=== PATIENT | male | born 1985 | race Caucasian/White ===

== ENCOUNTER 2023-01-14 13:26 | Outpatient (OUT) | payer BC, SELFPAY ==
--- NOTE | 2023-01-14 13:38 | XR_ITS ---
The [address] [address] Patient Name: JENNI ZAMUDIO MRN: [id number] date: 1985 Sex: M Assigned Patient Location: RAD Current Patient Location: Accession/Order Number: [id number] Exam Date: 01/14/2023 13:45 Report Date: 01/15/2023 07:18 At the request of: SHAIKH MAHAMED Procedure: XR toe RT min 2V PROCEDURE: XR toe RT min 2V COMPARISON: None. HISTORY: Right great toe pain M79.674 FINDINGS: BONES:Complex nonangulated fracture tuft of the first distal phalanx with distraction up to 1 mm. No dislocation. SOFT TISSUES:Soft tissue swelling first toe EFFUSION:None visible. OTHER: Negative. XR/XR toe RT min 2V IMPRESSION: Complex fracture tuft of the first distal phalanx Electronically authenticated by: IVONE ROWELL Date: 01/15/2023 07:18
== END 2023-01-14 13:27 | disposition home or self-care (01) ==
PROVIDERS: PCP Family Medicine; Visit Provider Internal Medicine
DX: S92.421A Displaced fracture of distal phalanx of right great toe, initial encounter for closed fracture (principal); M79.674 Pain in right toe(s)
CPT/HCPCS: 73660

== ENCOUNTER 2023-04-02 13:21 | Outpatient (OUT) | payer BC, SELFPAY ==
--- NOTE | 2023-04-02 13:31 | MR_ITS ---
The [address] [address] Patient Name: JENNI ZAMUDIO MRN: [id number] date: 1985 Sex: M Assigned Patient Location: [facility] Current Patient Location: [facility] Accession/Order Number: [id number] Exam Date: 04/02/2023 13:46 Report Date: 04/02/2023 15:07 At the request of: NON-STAFF PHYSICIAN Procedure: MR hip RT wo con MR hip RT wo con, 04/02/2023 1:46 PM EDT INDICATION: Loose Body In Right Hip Joint M24.051 COMPARISON: There is no appropriate prior study for comparison. TECHNIQUE: Multiplanar, multisequential MRI images were obtained without contrast. FINDINGS: This study is limited due to poor quality of images likely due to technical factors and patient's body habitus. Bone: There is no bone marrow signal abnormality. No osseus lesion or AVM is noted. The femoral acetabular joints are unremarkable. No definite loose body within the right femoral acetabular joint is noted. Labrum: There is focal T2 prolongation within the superolateral of right labrum suggesting of degenerative changes. Muscles: The visualized portions of muscles and tendons are unremarkable, given the limitation of study. No bursitis is noted. The visualized portions of visceral organs are unremarkable. MR/MR hip RT wo con IMPRESSION: Limited study. Findings suggestive of mild degenerative changes within the superolateral aspect of the right labrum. No definite loose body within the right femoral acetabular joint. Electronically authenticated by: SANDRA CHENG Date: 04/02/2023 15:07
--- NOTE | 2023-04-02 13:44 | XR_ITS ---
The [address] [address] Patient Name: JENNI ZAMUDIO MRN: [id number] date: 1985 Sex: M Assigned Patient Location: RAD Current Patient Location: [facility] Accession/Order Number: [id number] Exam Date: 04/02/2023 13:38 Report Date: 04/02/2023 13:55 At the request of: NON-STAFF PHYSICIAN Procedure: XR foreign body eye XR foreign body eye, 04/02/2023 1:38 PM EDT, OH001 INDICATION: Foreign Body Eye Evaluate for the presence of metallic/radiopaque foreign body, for MRI clearance COMPARISON: None Technique: AP and lateral views of the orbits obtained. FINDINGS: There is no evidence of radiopaque foreign body in the orbits. XR/XR foreign body eye IMPRESSION: No evidence of radiopaque foreign body. Electronically authenticated by: BLAYNE LILLY Date: 04/02/2023 13:55
== END 2023-04-02 13:22 | disposition home or self-care (01) ==
LOC: RAD 13:22
PROVIDERS: PCP Family Medicine
DX: M24.051 Loose body in right hip (principal)
CPT/HCPCS: 70030; 73721

== ENCOUNTER 2023-09-04 14:53 | Outpatient (OUT) | payer BC, SELFPAY ==
[2023-09-04 16:19] LABS: Basophils Percent Auto 0.4 % (0.2-2.0); Eosinophils Percent Auto 0.1 % (0.9-7.0); Hemoglobin 15.7 g/dL (14.0-18.0); Immature Granulocytes Abs Auto 0.03 10^3/uL (0.00-0.03); Immature Granulocytes Pct Auto 0.4 % (0.0-0.5); Lymphocytes Absolute Auto 1.5 10^3/uL (1.2-3.8); Lymphocytes Percent Auto 20.3 % (20.5-60.0); Mean Corpuscular HGB Conc 31.4 g/dL (29.9-35.2); Mean Corpuscular Hemoglobin 27.9 pg (25.9-34.0); Mean Platelet Volume 10.7 fL (9.5-13.5); Monocytes Absolute Auto 0.2 10^3/uL (0.3-0.8); Monocytes Percent Auto 2.1 % (1.7-12.0); Neutrophils Absolute Auto 5.8 10^3/uL (1.4-6.5); Neutrophils Percent Auto 76.7 % (43.0-75.0); Platelet Count 243 10^3/uL (150-450); Red Blood Count 5.62 10^6/uL (4.70-6.10); Red Cell Distribution Width 12.4 % (11.0-15.0); White Blood Count 7.5 10^3/uL (4.0-11.0)
[2023-09-04 16:47] LABS: Prostate Specific Antigen Dx 0.29 ng/mL (<=4.00)
[2023-09-04 16:51] LABS: Alanine Aminotransferase 38 U/L (16-63); Albumin Level 3.8 g/dL (3.4-5.0); Alkaline Phosphatase 67 U/L (46-116); Anion Gap 10.8; Aspartate Amino Transferase 18 U/L (15-37); BUN Creatinine Ratio 26.6; Bilirubin Direct 0.1 mg/dL (0.0-0.2); Bilirubin Total 0.4 mg/dL (0.2-1.0); Calcium 9.1 mg/dL (8.5-10.1); Carbon Dioxide 29.6 mmol/L (21.0-32.0); Chloride 102 mmol/L (98-107); Chol HDL Ratio 4.1; Cholesterol 172 mg/dL (<=200); Estimated GFR (African America >60 (>=60); Estimated GFR (Non-African Ame >60 (>=60); Globulin 3.8 g/dL; Glucose 112 mg/dL (74-106); HDL Cholesterol 42 mg/dL (40-60); LDL Cholesterol Calculated 117.2 mg/dL; Potassium 4.4 mmol/L (3.5-5.1); Sodium 138 mmol/L (136-145); Thyroid Stimulating Hormone 1.112 uIU/mL (0.358-3.740); Total Protein 7.6 g/dL (6.4-8.2); Triglycerides 64 mg/dL (<=150); VLDL CHOLESTEROL 12.8 mg/dL
[2023-09-04 17:31] LABS: Estimated Average Glucose 111 mg/dL; Glycohemoglobin A1C 5.5 % (4.5-6.2)
== END 2023-09-04 14:54 | disposition home or self-care (01) ==
LOC: LAB 14:54
PROVIDERS: PCP Family Medicine; Visit Provider Family Medicine
DX: Z00.00 Encounter for general adult medical examination without abnormal findings (principal)
CPT/HCPCS: 36415; 80048; 80061; 80076; 83036; 84153; 84443; 85025